=== PATIENT | male | born 1940 | race Caucasian/White ===

== ENCOUNTER 2017-05-07 14:10 | Emergency (ER) | payer OTHER ==
[~2017-05-07] VITALS: Ht 177.8 cm; Wt 71.1 kg
[~2017-05-07 14:10] MED LIST: B-122000 PO; COUM5TAB PO; D32000CA PO; DILTSR120 PO; LOVA40TA PO; OMEP20TA PO; PROP1TAB67 PO
[2017-05-07 14:17] VITALS: BP 158/66; PULSE 72; RESP 16; TEMP 97.8; O2SAT 96
[2017-05-07] MEDS ORDERED: COUM2TAB PO (15:31)
[2017-05-07] MEDS ORDERED: OMEP20TA93 PO (15:31)
[2017-05-07] MEDS ORDERED: COUM3TAB PO (15:31)
[2017-05-07] MEDS ORDERED: LIPI20TA PO (15:31)
[2017-05-07] MEDS ORDERED: DILT240C44 PO (15:31)
[2017-05-07] MEDS ORDERED: PROP40TA3 PO (15:31)
[2017-05-07] MEDS ORDERED: AZIT250T3 PO (15:49)
[2017-05-07] MEDS ORDERED: BENZ100 PO (15:49)
[2017-05-07] MEDS ORDERED: VENTAER INH (15:49)
--- NOTE | 2017-05-07 15:50 | PD ---
HPI Chief Complaint: Cold / Flu Symptoms Time Seen by Provider: 15:04 Travel History International Travel<30 days: No Contact w/Intl Traveler<30days: No Traveled to known affect area: No History of Present Illness HPI 76-year-old male here with cough and reported wheezing times one week. He denies fever or chills. He reports associated nasal congestion and sore throat. He reports all symptoms have improved with the exception of a cough which has lingered. He denies headache, chest pain, shortness of breath, abdominal pain, nausea vomiting or diarrhea. He has not attempted any over-the- counter medicine. PFSH Past Medical History Hx Anticoagulant Therapy: Yes (coumadin) Atrial Fibrillation: Yes Blood Disorders: No Heart Rhythm Problems: Yes Cancer: Yes (PROSTATE ) Cardiovascular Problems: Yes (htn on meds, hx of a-fib, pacemaker) High Cholesterol: Yes Chemotherapy: No Cerebrovascular Accident: Yes (tia) Diminished Hearing: No Endocrine: No Gastrointestinal Disorders: Yes (stomach ulcer) Genitourinary: Yes (STAGE 3 RENAL DISEASE) Hypertension: Yes Immune Disorder: No Implanted Vascular Access Dvce: Yes Kidney Stones: Yes Musculoskeletal: No Neurologic: Yes Psychiatric: No Reproductive: No Respiratory: No Immunizations Current: No Radiation Therapy: Yes (SEED IMPLANTS-PROSTATE) Renal Failure: No Ulcer: Yes (stomach ) Tetanus Vaccination: < 5 Years Influenza Vaccination: Yes Past Surgical History Abdominal Surgery: Yes (ULCER REPAIR, BOWEL RESECTION 01/2007) AICD: No Appendectomy: Yes Cardiac Surgery: Yes (Carotid Endarterectomy left ) Joint Replacement: No Neurologic Surgery: Yes Pacemaker: Yes Thoracic Surgery: Yes (PERMANENT PACER INSERTION JANUARY 11) Other Surgery: Yes (LAP/APPE 01/11.NECK BYPASS 2005) Social History Alcohol Use: No Tobacco Use: No (QUIT) Substance Use: No Allergies-Medications (Allergen,Severity, Reaction): Coded Allergies: No Known Allergies (Verified Adverse Reaction, Unknown, 05/07/17) Reported Meds & Prescriptions Reported Meds & Active Scripts Active Reported Lipitor (Atorvastatin Calcium) 20 Mg Tab 20 Mg PO HS Propranolol (Propranolol HCl) 40 Mg Tab 40 Mg PO Q12HR Diltiazem CD 24 HR 240 Mg Caper 240 Mg PO DAILY Omeprazole 20 Mg Tab 20 Mg PO DAILY Coumadin (Warfarin) 2 Mg Tab 2 Mg PO Coumadin (Warfarin) 3 Mg Tab 3 Mg PO DIRECTED Review of Systems Except as stated in HPI: all other systems reviewed are Neg Respiratory: Positive: Cough, Wheezing Physical Exam Narrative GENERAL: Alert well-appearing male in no distress. Patient coughing frequently SKIN: Warm and dry. HEAD: Normocephalic. EYES: No scleral icterus. No injection or drainage. : Mild pharyngeal erythema without tonsillar hypertrophy or exudate. NECK: Supple, trachea midline. No JVD or lymphadenopathy. CARDIOVASCULAR: Regular rate and rhythm without murmurs, gallops, or rubs. RESPIRATORY: Breath sounds equal bilaterally. No accessory muscle use. No wheezing rales or rhonchi. She has a harsh sounding cough GASTROINTESTINAL: Abdomen soft, non-tender, nondistended. MUSCULOSKELETAL: No cyanosis, or edema. BACK: Nontender without obvious deformity. No CVA tenderness. Data Data Last Documented VS Vital Signs Date Time Temp Pulse Resp B/P (MAP) Pulse Ox O2 Delivery O2 Flow Rate FiO2 05/07/17 15:26 Room Air 05/07/17 14:17 97.8 72 16 158/66 (96) 96 MDM Medical Decision Making Medical Screen Exam Complete: Yes Emergency Medical Condition: Yes Differential Diagnosis Bronchitis, pneumonia, influenza Narrative Course 76-year-old male with cough and reported wheezing times one week. He reports he had URI-like symptoms preceding the cough. All symptoms improved with the exception of the cough. He is well-appearing. His vital signs are stable. His lung sounds are clear. He has a harsh sounding cough emergency room. He will be treated for bronchitis and instructed to follow-up with his primary doctor. Diagnosis Primary Impression: Bronchitis Referrals: Primary Care Physician Additional Instructions: Take the medications as prescribed. Make a follow-up appointment with her doctor. Return if he developed new or worsening symptoms. 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 Prov: Evonne Wong 05/07/17 Disposition: 01 DISCHARGE HOME Condition: Stable Evonne Wong May 07, 2017 15:50
== END 2017-05-07 15:58 | disposition home or self-care (01) ==
LOC: PHEFT 14:10
DX: J40 Bronchitis, not specified as acute or chronic (principal); R06.2 Wheezing; R09.81 Nasal congestion; R07.0 Pain in throat; I10 Essential (primary) hypertension; E78.00 Pure hypercholesterolemia, unspecified; Z79.01 Long term (current) use of anticoagulants; Z86.79 Personal history of other diseases of the circulatory system; Z85.46 Personal history of malignant neoplasm of prostate; Z87.19 Personal history of other diseases of the digestive system; Z87.448 Personal history of other diseases of urinary system; Z86.69 Personal history of other diseases of the nervous system and sense organs
CPT/HCPCS: 99284

== ENCOUNTER 2017-07-28 10:00 | Emergency (ER) | payer OTHER ==
[~2017-07-28] VITALS: Ht 177.8 cm; Wt 72.7 kg
[~2017-07-28 10:00] MED LIST changes: +AZIT250T3 PO; -B-122000 PO; +BENZ100 PO; +COUM2TAB PO; +COUM3TAB PO; -COUM5TAB PO; -D32000CA PO; +DILT240C44 PO; -DILTSR120 PO; +LIPI20TA PO; -LOVA40TA PO; -OMEP20TA PO; +OMEP20TA93 PO; -PROP1TAB67 PO; +PROP40TA3 PO; +VENTAER INH
[2017-07-28 10:02] VITALS: BP 193/86; PULSE 72; RESP 16; TEMP 98.4; O2SAT 98
[2017-07-28] MEDS ORDERED: PROP40TA3 PO (10:12)
[2017-07-28] MEDS ORDERED: COUM2TAB PO (10:12)
[2017-07-28] MEDS ORDERED: COUM3TAB PO (10:12)
[2017-07-28 10:37] LABS: AUTOMATED NEUTROPHIL # 4.6 TH/MM3 (1.8-7.7); BASOPHIL # 0.1 TH/MM3 (0-0.2); EOSINOPHIL # 0.2 TH/MM3 (0-0.4); EOSINOPHIL % 2.5 % (0.0-4.0); HEMATOCRIT 38.5 % (39.0-51.0); HEMOGLOBIN 12.6 GM/DL (13.0-17.0); LYMPH % 20.1 % (9.0-44.0); LYMPHOCYTE # 1.4 TH/MM3 (1.0-4.8); MEAN CELL VOLUME 75.5 FL (80.0-100.0); MEAN CORPUSCULAR HEMOGLOBIN 24.8 PG (27.0-34.0); MEAN CORPUSCULAR HGB CONC 32.8 % (32.0-36.0); MEAN PLATELET VOLUME 10.5 FL (7.0-11.0); MONO % 7.4 % (0.0-8.0); MONOCYTE # 0.5 TH/MM3 (0-0.9); PLATELET COUNT 186 TH/MM3 (150-450); RED CELL DISTRIBUTION WIDTH 20.2 % (11.6-17.2); WHITE BLOOD COUNT 6.8 TH/MM3 (4.0-11.0)
[2017-07-28 10:48] LABS: CALCIUM 9.8 MG/DL (8.5-10.1)
[2017-07-28 10:49] LABS: BICARBONATE 28.6 MEQ/L (21.0-32.0)
[2017-07-28 10:50] LABS: INTERNATIONAL NORMALIZED RATIO 2.7 RATIO; PROTHROMBIN TIME - PATIENT 26.8 SEC (9.8-11.6)
[2017-07-28 10:52] LABS: CREATININE 2.1 MG/DL (0.60-1.30)
[2017-07-28 10:57] VITALS: O2SAT 100
--- NOTE | 2017-07-28 11:18 | PD ---
HPI Chief Complaint: Head Injury Time Seen by Provider: 10:12 Travel History International Travel<30 days: No Contact w/Intl Traveler<30days: No Traveled to known affect area: No History of Present Illness HPI 76-year-old male complains of headache, left-sided neck pain. Patient states that he fell several months ago and hit the right side of the head. Patient states that he had had headache for several days and that resolved completely. Patient fell again 2 days ago and hit the right side the head. Patient states that he has persistent right-sided headache since then. Patient states that he had loss of consciousness for a few seconds. Patient states that his eye having left-sided neck pain since then. Patient states that the neck pain is worse with swallowing. Patient complains of mild blurred vision since then also. Patient states that he has nausea this morning but no vomiting. Patient denies any chest pain or shortness of breath. Patient denies abdominal pain. Patient denies any focal weakness or numbness of the extremity. 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 Patient is on Coumadin. Patient also has history of hyperlipidemia. PFSH Past Medical History Hx Anticoagulant Therapy: Yes (COUMADIN) Atrial Fibrillation: Yes Blood Disorders: No Heart Rhythm Problems: Yes Cancer: Yes (PROSTATE ) Cardiovascular Problems: Yes (htn on meds, hx of a-fib, pacemaker) High Cholesterol: Yes Chemotherapy: No Cerebrovascular Accident: Yes (tia) Diabetes: No Diminished Hearing: No Endocrine: No Gastrointestinal Disorders: Yes (stomach ulcer) GERD: Yes Genitourinary: Yes (STAGE 3 RENAL DISEASE) Hypertension: Yes Immune Disorder: No Implanted Vascular Access Dvce: Yes Kidney Stones: Yes Musculoskeletal: No Neurologic: Yes Psychiatric: No Reproductive: No Respiratory: No Immunizations Current: No Radiation Therapy: Yes (SEED IMPLANTS-PROSTATE) Renal Failure: No Ulcer: Yes (stomach ) Tetanus Vaccination: < 5 Years Past Surgical History Abdominal Surgery: Yes (ULCER REPAIR, BOWEL RESECTION 01/2007) AICD: No Appendectomy: Yes Cardiac Surgery: Yes (Carotid Endarterectomy left ) Insulin Pump: No Joint Replacement: No Neurologic Surgery: Yes Pacemaker: Yes Thoracic Surgery: Yes (PERMANENT PACER INSERTION JANUARY 11) Other Surgery: Yes (LAP/APPE 01/11.NECK BYPASS 2005) Social History Alcohol Use: No Tobacco Use: No (QUIT) Substance Use: No Allergies-Medications (Allergen,Severity, Reaction): Coded Allergies: No Known Allergies (Verified Adverse Reaction, Unknown, 07/28/17) Reported Meds & Prescriptions Reported Meds & Active Scripts Active Ventolin Hfa 18 GM Inh (Albuterol Sulfate) 90 Mcg/Act Aer 2 Puff INH Q4-6H PRN Reported Coumadin (Warfarin) 2 Mg Tab 2 Mg PO MOFR Coumadin (Warfarin) 3 Mg Tab 3 Mg PO WEU Propranolol (Propranolol HCl) 40 Mg Tab 40 Mg PO DAILY Lipitor (Atorvastatin Calcium) 20 Mg Tab 20 Mg PO HS Diltiazem CD 24 HR 240 Mg Caper 240 Mg PO DAILY Omeprazole 20 Mg Tab 20 Mg PO DAILY Review of Systems General / Constitutional: No: Fever Eyes: Positive: Blurred Vision, No: Visual changes HENT: Positive: Headaches, Neck Pain Cardiovascular: No: Chest Pain or Discomfort Respiratory: No: Shortness of Breath Gastrointestinal: Positive: Nausea, No: Abdominal Pain Genitourinary: No: Dysuria Musculoskeletal: No: Pain Skin: No Rash Neurologic: No: Weakness Psychiatric: No: Depression Endocrine: No: Polydipsia Hematologic/Lymphatic: No: Easy Bruising Physical Exam Narrative GENERAL: Well-nourished, well-developed patient. SKIN: Focused skin assessment warm/dry. HEAD: Normocephalic. EYES: No scleral icterus. No injection or drainage. NECK: Supple, trachea midline. No JVD or lymphadenopathy. Mild to moderate tenderness on palpation left-sided neck area. Trachea midline. CARDIOVASCULAR: Regular rate and rhythm without murmurs, gallops, or rubs. RESPIRATORY: Breath sounds equal bilaterally. No accessory muscle use. GASTROINTESTINAL: Abdomen soft, non-tender, nondistended. MUSCULOSKELETAL: No cyanosis, or edema. BACK: Nontender without obvious deformity. No CVA tenderness. Neurologic exam: Patient's awake and alert oriented 3. No obvious focal neurological deficit. Data Data Last Documented VS Vital Signs Date Time Temp Pulse Resp B/P (MAP) Pulse Ox O2 Delivery O2 Flow Rate FiO2 07/28/17 10:57 100 Room Air 07/28/17 10:08 16 07/28/17 10:02 98.4 72 193/86 (121) Orders Orders Complete Blood Count With Diff (07/28/17 10:19) Basic Metabolic Panel (Bmp) (07/28/17 10:19) Prothrombin Time / Inr (Pt) (07/28/17 10:19) Act Partial Throm Time (Ptt) (07/28/17 10:19) Iv Access Insert/Monitor (07/28/17 10:19) Ecg Monitoring (07/28/17 10:19) Oximetry (07/28/17 10:19) Ct Brain W/O Iv Contrast(Rout) (07/28/17 10:19) Ct Cerv Spine W/O Contrast (07/28/17 10:19) Ct Soft Tiss Neck W/O Iv Cont (07/28/17 10:19) Labs Laboratory Tests Test 07/28/17 10:20 White Blood Count 6.8 TH/MM3 Red Blood Count 5.10 MIL/MM3 Hemoglobin 12.6 GM/DL Hematocrit 38.5 % Mean Corpuscular Volume 75.5 FL Mean Corpuscular Hemoglobin 24.8 PG Mean Corpuscular Hemoglobin Concent 32.8 % Red Cell Distribution Width 20.2 % Platelet Count 186 TH/MM3 Mean Platelet Volume 10.5 FL Neutrophils (%) (Auto) 69.0 % Lymphocytes (%) (Auto) 20.1 % Monocytes (%) (Auto) 7.4 % Eosinophils (%) (Auto) 2.5 % Basophils (%) (Auto) 1.0 % Neutrophils # (Auto) 4.6 TH/MM3 Lymphocytes # (Auto) 1.4 TH/MM3 Monocytes # (Auto) 0.5 TH/MM3 Eosinophils # (Auto) 0.2 TH/MM3 Basophils # (Auto) 0.1 TH/MM3 CBC Comment AUTO DIFF Differential Comment AUTO DIFF CONFIRMED Ovalocytes 1+ Keratocytes OCC Prothrombin Time 26.8 SEC Prothromb Time International Ratio 2.7 RATIO Activated Partial Thromboplast Time 40.1 SEC Blood Urea Nitrogen 20 MG/DL Creatinine 2.10 MG/DL Random Glucose 94 MG/DL Calcium Level 9.8 MG/DL Sodium Level 138 MEQ/L Potassium Level 4.4 MEQ/L Chloride Level 105 MEQ/L Carbon Dioxide Level 28.6 MEQ/L Anion Gap 4 MEQ/L Estimat Glomerular Filtration Rate 31 ML/MIN MDM Medical Decision Making Medical Screen Exam Complete: Yes Emergency Medical Condition: Yes Interpretation(s) 11:29 AM. CBC WBC 6.8. Hemoglobin 12.6 hematocrit 30.5. MCV 75.5. BUN 20. Creatinine 2.1. GFR 31. INR 2.7. 12:18 PM. Last Impressions Neck CT 07/28/17 1019 Signed Impressions: Service Date/Time: Friday, July 28, 2017 11:09 - CONCLUSION: No acute traumatic process in the neck Ashutosh Sims MD Head CT 07/28/17 1019 Signed Impressions: Service Date/Time: Friday, July 28, 2017 11:09 - CONCLUSION: 1. No acute findings in the brain. Richar Love MD Differential Diagnosis Differential diagnosis including contusion, concussion, intracranial hemorrhage , neck strain versus hematoma, vascular injury. Narrative Course 76-year-old male with headache, neck pain, low vision, blurred vision. Status post fall 2 days ago. Patient is on Coumadin. Diagnosis Primary Impression: Closed head injury Qualified Codes: S09.90XA - Unspecified injury of head, initial encounter Additional Impression: Cervical strain, acute Qualified Codes: S16.1XXA - Strain of muscle, fascia and tendon at neck level , initial encounter Patient Instructions: General Instructions Additional Instructions: Head trauma instructions given. Tylenol for headache and pain. Follow-up with personal physician. Return if worse. Med/Other Pt SpecificInfo: No Change to Meds Disposition: 01 DISCHARGE HOME Condition: Stable Max Fenton MD Jul 28, 2017 11:18
[2017-07-28 11:21] LABS: KERATOCYTES OCC (NORMAL); OVALOCYTES 1+ (NORMAL)
--- NOTE | 2017-07-28 11:28 | RADRPT ---
EXAM DATE/TIME: 07/28/2017 11:09 [facility] COMPARISON: No previous studies available for comparison. INDICATIONS : Trauma. Fell on Wednesday, hit right side of head. Dizziness. RADIATION DOSE: 64.30 CTDIvol (mGy) MEDICAL HISTORY : Carcinoma, prostate. Cerebrovascular disease. Gastroesophageal reflux disease.Renal failure. Ulcer. Hypertension. SURGICAL HISTORY : Carotid stent. Appendectomy.Colon resection.Pacemaker. ENCOUNTER: Initial ACUITY: 3 days PAIN SCALE: 5/10 LOCATION: Right cranial TECHNIQUE: Multiple contiguous axial images were obtained of the head. Using automated exposure control and adj ustment of the mA and/or kV according to patient size, radiation dose was kept as low as reasonably a chievable to obtain optimal diagnostic quality images. DICOM format image data is available electro nically for review and comparison. FINDINGS: CEREBRUM: The ventricles are normal for age. No evidence of midline shift, mass lesion, hemorrhage or acute in farction. No extra-axial fluid collections are seen. POSTERIOR FOSSA: The cerebellum and brainstem are intact. The 4th ventricle is midline. The cerebellopontine angle i s unremarkable. EXTRACRANIAL: The visualized portion of the orbits is intact. SKULL: The calvaria is intact. No evidence of skull fracture. CONCLUSION: 1. No acute findings in the brain. Richar Love MD on July 28, 2017 at 11:26 Board Certified Radiologist. This report was verified electronically.
--- NOTE | 2017-07-28 11:52 | RADRPT ---
EXAM DATE/TIME: 07/28/2017 11:09 [facility] COMPARISON: No previous studies available for comparison. INDICATIONS : Trauma. Fell on Wednesday, hit right side of head. Dizziness. Left neck pain and swelling. RADIATION DOSE: 13.23 CTDIvol (mGy) MEDICAL HISTORY : Carcinoma, prostate. Cerebrovascular disease. Gastroesophageal reflux disease.Hypertension. Ulcer. Renal failure. SURGICAL HISTORY : Carotid stent. Appendectomy.Colon resection.Pacemaker. ENCOUNTER: Initial ACUITY: 3 days PAIN SCORE: 7/10 LOCATION: Left neck TECHNIQUE: Volumetric scanning of the neck was performed. Using automated exposure control and adjustment of th e mA and/or kV according to patient size, radiation dose was kept as low as reasonably achievable to obtain optimal diagnostic quality images. DICOM format image data is available electronically for re view and comparison. FINDINGS: The visualized brain and orbitofacial structures appear atraumatic. In the neck, there is no evidence of mass, adenopathy or hematoma. There is some sort of left sided c arotid subclavian bypass reconstruction present. Mild atherosclerotic disease in the right carotid sy stem. There is no evidence of supraclavicular mass adenopathy or hematoma. The visualized upper mediastinum and lung apices are clear CONCLUSION: No acute traumatic process in the neck Ashutosh Sims MD on July 28, 2017 at 11:43 Board Certified Radiologist. This report was verified electronically.
--- NOTE | 2017-07-28 12:08 | RADRPT ---
EXAM DATE/TIME: 07/28/2017 11:09 [facility] COMPARISON: No previous studies available for comparison. INDICATIONS : Trauma. Fell on Wednesday, hit right side of head. Dizziness. Left neck pain. RADIATION DOSE: ; Reconstructed from previous dataset, no dose MEDICAL HISTORY : Carcinoma, prostate. Cerebrovascular disease. Gastroesophageal reflux disease.Ulcer. Renal failure. Hypertension. SURGICAL HISTORY : Carotid stent. Appendectomy.Colon resection.Pacemaker. ENCOUNTER: Initial ACUITY: 3 days PAIN SCALE: 7/10 LOCATION: Left neck TECHNIQUE: Volumetric scanning of the cervical spine was performed. Multiplanar reconstructions in the sagittal, coronal and oblique axial planes were performed. Using automated exposure control and adjustment o f the mA and/or kV according to patient size, radiation dose was kept as low as reasonably achievable to obtain optimal diagnostic quality images. DICOM format image data is available electronically f or review and comparison. FINDINGS: There is normal alignment of vertebral bodies of the cervical spine preservation of vertebral body he ight. Mild curvature of the cervical spine convex to the left with associated hypertrophic degenerat salvador changes in the facet joints on the inner curvature. There is also right-sided posterior osteophy franklyn at the C3-4 level. The atlantoaxial articulation is intact. No evidence of locked or perched fa cets. The spinous processes are intact. C2-C3: No fracture seen. The neural foramina are patent. C3-C4: No fracture seen. Mild neural foraminal narrowing. Asymmetric hypertrophic changes in the right fac et joint. C4-C5: No fracture seen. The neural foramina are patent. C5-C6: No fracture seen. The neural foramina are patent. Asymmetric hypertrophic changes in the right face t joints. C6-C7: No fracture seen. The neural foramina are patent. C7-T1: No fracture seen. The neural foramina are patent. CONCLUSION: Degenerative changes in the right facet joints related to curvature of the cervical spine towards the left. No evidence of compression deformity or spondylolisthesis. Richar Love MD on July 28, 2017 at 11:58 Board Certified Radiologist. This report was verified electronically.
[2017-07-28 12:34] VITALS: BP 188/85
== END 2017-07-28 12:45 | disposition home or self-care (01) ==
LOC: PHED 10:00
DX: S09.90XA Unspecified injury of head, initial encounter (principal); S16.1XXA Strain of muscle, fascia and tendon at neck level, initial encounter; I12.9 Hypertensive chronic kidney disease with stage 1 through stage 4 chronic kidney disease, or unspecified chronic kidney disease; N18.3 Chronic kidney disease, stage 3 (moderate); E78.00 Pure hypercholesterolemia, unspecified; I48.91 Unspecified atrial fibrillation; Z79.01 Long term (current) use of anticoagulants; Z85.46 Personal history of malignant neoplasm of prostate; Z95.0 Presence of cardiac pacemaker; Z86.73 Personal history of transient ischemic attack (TIA), and cerebral infarction without residual deficits; W19.XXXA Unspecified fall, initial encounter
CPT/HCPCS: 70450; 70490; 72125; 80048; 85025; 85610; 85730; 99284